=== PATIENT | female | born 1970 | race Caucasian/White ===

== ENCOUNTER → 2019-01-03 | Outpatient (CLI) | payer SELFPAY ==
--- NOTE | 2019-01-03 17:19 | REP ---
MRCP: MRCP exam is accomplished utilizing multiple heavily T2 weighted sequences in the axial and coronal planes. MIP reconstruction images are performed. Gallbladder demonstrates no definite filling defect. There is a fold in the fundus of the gallbladder. The Intrahepatic bile ducts are not dilated. Common hepatic and common bile ducts are nor dilated. There is peripheral hypointense signal in the region of the proximal common bile duct superiorly measuring about 3 x 5 mm. This projects along the inner wall but is felt to most likely represent artifact from adjacent hepatic artery. No intraluminal stone is seen in the common bile duct. No stricture is seen. The pancreatic duct is normal in caliber. No free fluid is seen in the visualized upper abdomen. No other abnormality is seen in the visualized upper abdomen. IMPRESSION: No evidence of biliary dilatation. No evidence of cholelithiasis or choledocholithiasis. There is a fold in the fundus of the gallbladder. No biliary stricture is seen. In the proximal common bile duct along the inner wall is an area of hypointense signal measuring 3 x 5 mm most likely representing artifact from an adjacent hepatic artery. Electronically Signed by Tomy Ramirez MD 01/03/2019 11:51 P
== END ==
LOC: M RAD 15:29
PROVIDERS: ATTEND Registered Nurse Community Health
DX: R10.11 Right upper quadrant pain (principal)